=== PATIENT | male | born 1975 | race Caucasian/White ===

== ENCOUNTER 2021-03-22 05:11 | Observation (INO) ==
[2021-03-22 06:36] LABS: Basophils % 0.3 %; Eosinophils % 0.1 %; Hemoglobin 15.7 g/dL (12.9-16.9); Immature Granulocytes % 0.4 % (0-4); Lymphocytes # 0.3 K/mcL (0.6-4.6); Lymphocytes % 3.7 %; Mean Corpuscular HGB Conc 33.4 g/dL (31.6-35.5); Mean Corpuscular Hemoglobin 30.1 pg (28.0-33.3); Mean Corpuscular Volume 90.2 fL (83.0-100.0); Mean Platelet Volume 9.7 fL (9.4-12.4); Monocytes # 0.3 K/mcL (0.0-1.3); Monocytes % 3.6 %; Neutrophils # 7.2 K/mcL (1.6-8.9); Platelet Count 152 K/mcL (140-400); Red Blood Count 5.21 M/mcL (4.19-5.50); Red Cell Distribution Width 11.9 % (11.5-14.5); Segmented Neutrophils % 91.9 %; White Blood Count 7.8 K/mcL (4.3-11.1)
[2021-03-22 07:02] LABS: Alanine Aminotransferase 211 Units/L (7-52); Albumin 4.7 g/dL (3.5-5.7); Albumin/Globulin Ratio 1.4 (1.1-2.2); Alkaline Phosphatase 146 Units/L (34-104); Aspartate Amino Transferase 416 Units/L (13-39); BUN/Creatinine Ratio 14 (6-26); Bilirubin,Indirect 0.9 mg/dL (0.0-1.0); Bilirubin,Total 1.9 mg/dL (0.3-1.0); Blood Urea Nitrogen 14 mg/dL (6-20); Calcium 9.5 mg/dL (8.6-10.3); Carbon Dioxide 28 mEq/L (23-29); Chloride 103 mEq/L (98-107); Globulin 3.3 g/dL (2.4-3.5); Glucose 116 mg/dL (70-105); Lipase 56 Units/L (11-82); Osmolality,Calculated 293 (280-300); Potassium 3.6 mEq/L (3.5-5.1); Sodium 141 mEq/L (136-145); eGFR For African Americans > 60 (> 60); eGFR For Non-African Americans > 60 (> 60)
[2021-03-22] MEDS ORDERED: Ketorolac 30 MG/ML VIAL IVP STA ×2 (07:02→10:13)
[2021-03-22] MEDS ORDERED: Isovue-370 500 ML BOTTLE IVP ONE (07:07)
[2021-03-22] MEDS ORDERED: *HR* FentaNYL (PF) 100 MCG/2 ML VIAL IVP ONE (07:07)
[2021-03-22] MEDS ORDERED: Famotidine 20 MG/2 ML VIAL IVP ONE ×2 (07:09→13:52)
[2021-03-22 07:52] LABS: Bilirubin,Urine Negative (Negative); Blood,Urine Negative (Negative); Clarity,Urine Clear (Clear); Color,Urine Yellow (Yellow); Glucose,Urine (UA) Normal (Normal); Ketones,Urine Negative (Negative); Leukocyte Esterase,Urine Negative (Negative); Nitrite,Urine Negative (Negative); Protein,Urine Negative (Neg-Trace); Specific Gravity,Urine 1.014 (1.010-1.025); Urobilinogen,Urine Normal (Normal)
[2021-03-22] MEDS ORDERED: 0.9 % Sodium Chloride 1,000 ML IVC ONE (08:01)
[2021-03-22] MEDS ORDERED: Naloxone 0.4 MG/ML INJ IVP PRN (11:08)
[2021-03-22] MEDS ORDERED: Ondansetron 4 MG/2 ML VIAL IVP PRN (11:08)
[2021-03-22] MEDS ORDERED: Morphine Sulfate 2 MG/ML SYRINGE IVP PRN (11:10)
[2021-03-22] MEDS: 0.9 % Sodium Chloride 1,000 ML IVC SCH ×2 (11:45→19:55)
[2021-03-22] MEDS ORDERED: *HR* HYDROmorphone 2 MG TABLET PO PRN (13:52)
[2021-03-22] MEDS ORDERED: *HR* Promethazine 25 MG/ML VIAL IVPB PRN (13:52)
[2021-03-22] MEDS ORDERED: *HR* Labetalol 20 MG/4 ML SYRINGE IVP PRN (13:52)
[2021-03-22] MEDS ORDERED: *HR* HYDROmorphone (PF) 1 MG/ML SYRINGE IVP PRN (13:52)
[2021-03-22] MEDS ORDERED: Acetaminophen IV 1,000 MG/100 ML BAG IVPB ONE (13:52)
[2021-03-22] MEDS ORDERED: *HR* OxyCODONE Immed Rel 5 MG TABLET PO PRN (13:52)
[2021-03-22] MEDS ORDERED: *HR* Midazolam HCl 2 MG/2 ML VIAL ONE (15:27)
[2021-03-22] MEDS ORDERED: *HR* Propofol 200 MG/20 ML VIAL IVP ONE (15:27)
[2021-03-22] MEDS ORDERED: *HR* FentaNYL (PF) 100 MCG/2 ML VIAL ONE ×3 (15:27→16:04)
[2021-03-22] MEDS ORDERED: Lidocaine HCL 4 ML Topical Solution (Laryng-O-Jet Kit Sterile Pak) TP ONE (15:31)
[2021-03-22] MEDS ORDERED: Lidocaine -MPF 2% 5 ML VIAL ONE (16:34)
[2021-03-22] MEDS ORDERED: *HR* Succinylcholine 200 MG/10 ML VIAL IVP ONE (16:34)
[2021-03-22] MEDS ORDERED: Ondansetron 4 MG/2 ML VIAL ONE (16:34)
[2021-03-22] MEDS ORDERED: *HR* Metoprolol 5 MG/5 ML VIAL IVP ONE (16:37)
[2021-03-22] MEDS ORDERED: *HR* LORazepam 2 MG/ML VIAL IVP PRN ×3 (17:33)
[2021-03-22] MEDS: Ampicillin/Sulbactam 3,000 MG in 0.9 % Sodium Chloride Mini Bag 100 ML IVPB SCH (17:43)
[2021-03-22] MEDS ORDERED: NON-FORMULARY MEDICATION 1 EACH EACH (Tadalafil [Cialis] 5 MG Tablet) PO PRN (17:49)
[2021-03-22] MEDS ORDERED: Thiamine (B-1) 100 MG, Folic Acid 1 MG in 0.9 % Sodium Chloride 500 ML IVPB SCH (18:00)
[2021-03-22] MEDS ORDERED: Chloraseptic Spray 177 ML BOTTLE MM PRN (18:48)
[2021-03-22] MEDS: atenoloL 50 MG TABLET PO SCH (20:04)
[2021-03-22] MEDS: Morphine Sulfate 2 MG/ML SYRINGE IVP PRN (20:04)
[2021-03-23] MEDS: Ampicillin/Sulbactam 3,000 MG in 0.9 % Sodium Chloride Mini Bag 100 ML IVPB SCH ×5 (00:53→23:59)
[2021-03-23] MEDS: Morphine Sulfate 2 MG/ML SYRINGE IVP PRN (01:03)
[2021-03-23] MEDS: 0.9 % Sodium Chloride 1,000 ML IVC SCH ×2 (01:52→05:13)
[2021-03-23 05:55] LABS: Basophils % 0.1 %; Lymphocytes % 2.1 %; Monocytes % 5.3 %
[2021-03-23 05:57] LABS: Hematocrit 41.1 % (37.5-50.1); Hemoglobin 13.6 g/dL (12.9-16.9); Immature Granulocytes % 0.7 % (0-4); Immature Platelets 6.4 % (1.1-6.1); Lymphocytes # 0.3 K/mcL (0.6-4.6); Mean Corpuscular HGB Conc 33.1 g/dL (31.6-35.5); Mean Corpuscular Hemoglobin 29.9 pg (28.0-33.3); Mean Corpuscular Volume 90.3 fL (83.0-100.0); Mean Platelet Volume 10.5 fL (9.4-12.4); Monocytes # 0.7 K/mcL (0.0-1.3); Platelet Count 121 K/mcL (140-400); Red Blood Count 4.55 M/mcL (4.19-5.50); Red Cell Distribution Width 12.1 % (11.5-14.5); Segmented Neutrophils % 91.8 %; White Blood Count 12.5 K/mcL (4.3-11.1)
[2021-03-23 06:04] LABS: Neutrophils # 11.5 K/mcL (1.6-8.9)
[2021-03-23 06:12] LABS: BUN/Creatinine Ratio 18 (6-26); Blood Urea Nitrogen 16 mg/dL (6-20); Calcium 8.6 mg/dL (8.6-10.3); Carbon Dioxide 25 mEq/L (23-29); Chloride 105 mEq/L (98-107); Glucose 136 mg/dL (70-105); Osmolality,Calculated 287 (280-300); Phosphorous 3.1 mg/dL (2.7-4.5); Potassium 3.9 mEq/L (3.5-5.1); Sodium 137 mEq/L (136-145); eGFR For African Americans > 60 (> 60); eGFR For Non-African Americans > 60 (> 60)
[2021-03-23] MEDS ORDERED: Lidocaine -MPF 4% 5 ML AMPUL ONE (07:27)
[2021-03-23] MEDS: atenoloL 50 MG TABLET PO SCH ×2 (07:27→20:52)
[2021-03-23] MEDS ORDERED: *HR* Propofol 200 MG/20 ML VIAL IVP ONE ×2 (07:28→07:31)
[2021-03-23] MEDS ORDERED: *HR* Midazolam HCl 2 MG/2 ML VIAL ONE (07:30)
[2021-03-23] MEDS ORDERED: *HR* FentaNYL (PF) 100 MCG/2 ML VIAL ONE (07:30)
[2021-03-23] MEDS ORDERED: Lidocaine HCL 4 ML Topical Solution (Laryng-O-Jet Kit Sterile Pak) TP ONE (07:33)
[2021-03-23] MEDS ORDERED: *HR* Rocuronium Bromide 50 MG/5 ML VIAL ONE (07:33)
[2021-03-23] MEDS ORDERED: Lidocaine -MPF 2% 5 ML VIAL ONE (07:33)
[2021-03-23] MEDS ORDERED: Sugammadex Sodium 200 MG/2 ML VIAL IV ONE (07:33)
[2021-03-23] MEDS ORDERED: Ondansetron 4 MG/2 ML VIAL ONE (07:33)
[2021-03-23] MEDS ORDERED: *HR* Succinylcholine 200 MG/10 ML VIAL IVP ONE (07:33)
[2021-03-23] MEDS ORDERED: Ketamine HCL *QUVA* 50mg (1mL) SYRINGE ONE (08:04)
[2021-03-23] MEDS ORDERED: Acetaminophen IV 1,000 MG/100 ML BAG IVPB ONE (08:08)
[2021-03-23] MEDS ORDERED: Haloperidol Lactate 5 MG/ML VIAL ONE (08:10)
[2021-03-23] MEDS ORDERED: *HR* HYDROmorphone (PF) 1 MG/ML SYRINGE IVP PRN (08:18)
[2021-03-23] MEDS ORDERED: *HR* HYDROMORPHONE 2 MG/ML VIAL ONE (08:38)
[2021-03-23] MEDS ORDERED: Ketorolac 30 MG/ML VIAL ONE (09:31)
[2021-03-23] MEDS ORDERED: Chloraseptic Spray 177 ML BOTTLE MM PRN (10:19)
[2021-03-23] MEDS ORDERED: Ondansetron 4 MG/2 ML VIAL IVP PRN (10:19)
[2021-03-23] MEDS ORDERED: Naloxone 0.4 MG/ML INJ IVP PRN (10:19)
[2021-03-23] MEDS ORDERED: *HR* LORazepam 2 MG/ML VIAL IVP PRN ×3 (10:19)
[2021-03-23] MEDS: Ketorolac 30 MG/ML VIAL IVP SCH ×3 (12:34→23:58)
[2021-03-23] MEDS ORDERED: Thiamine (B-1) 100 MG, Folic Acid 1 MG in 0.9 % Sodium Chloride 500 ML IVPB SCH (18:00)
[2021-03-23] MEDS: Thiamine (B-1) 100 MG TABLET PO SCH (20:51)
[2021-03-23] MEDS: Folic Acid 1 MG TABLET PO SCH (20:51)
[2021-03-24 02:59] VITALS: O2SAT 97
[2021-03-24] MEDS: Ampicillin/Sulbactam 3,000 MG in 0.9 % Sodium Chloride Mini Bag 100 ML IVPB SCH (05:45)
[2021-03-24] MEDS: Ketorolac 30 MG/ML VIAL IVP SCH (05:45)
[2021-03-24 08:00] VITALS: BP 147/87; PULSE 87; TEMP 98.4
[2021-03-24] MEDS: Thiamine (B-1) 100 MG TABLET PO SCH (08:15)
[2021-03-24] MEDS: atenoloL 50 MG TABLET PO SCH (08:15)
[2021-03-24] MEDS: Folic Acid 1 MG TABLET PO SCH (08:16)
== END 2021-03-24 11:59 | disposition home or self-care (01) ==
LOC: EMEROOARM 05:11 → 3BNU 05:11
PROVIDERS: ADMIT Student in an Organized Health Care Education/Training Program; ATTEND Student in an Organized Health Care Education/Training Program